=== PATIENT | male | born 1975 | race African-American/Black ===

== ENCOUNTER 2018-11-13 10:48 | Inpatient (IN) | payer MEDICAID ==
[~2018-11-13] VITALS: Ht 175.3 cm; Wt 68.9 kg
[2018-11-13 12:21] LABS: BASOPHILS % 1.1 % (0.0-2.0); EOSINOPHILS % 2.5 % (0.0-5.0); HEMATOCRIT. 38.4 % (42.0-52.0); HEMOGLOBIN. 13.4 g/dL (14.0-18.0); LYMPHOCYTES % 11.4 % (20.0-50.0); MEAN CORPUSCULAR HEMOGLOBIN 35.8 pg (28.0-32.0); MEAN CORPUSCULAR VOLUME 102.8 fL (80.0-94.0); MEAN PLATELET VOLUME 9.4 fl (7.4-10.4); MONOCYTES % 7.4 % (2.0-8.0); NEUTROPHILS % 77.6 % (40.0-76.0); PLATELET 144 x1000/uL (130-400); RED BLOOD CELL COUNT 3.74 mill/uL (4.7-6.1); RED CELL DISTRIBUTION WIDTH 14.1 % (11.6-14.6)
[2018-11-13 12:26] LABS: CHLORIDE 100 mEq/L (98-107)
[2018-11-13 12:31] LABS: ETHANOL BLOOD < 10 mg/dL
[2018-11-13 14:03] LABS: CLARITY URINE CLEAR (CLEAR); KETONES URINE TRACE (NEGATIVE); LEUKOCYTE ESTERASE URINE NEGATIVE (NEGATIVE); NITRITE URINE NEGATIVE (NEGATIVE); OCCULT BLOOD URINE TRACE (NEGATIVE); PROTEIN URINE 1+ (NEGATIVE)
[2018-11-13 14:18] LABS: *BARBITURATES SCREEN URINE NEGATIVE (NEGATIVE); *BENZODIAZEPINES SCREEN URINE NEGATIVE (NEGATIVE); *COCAINE SCREEN URINE NEGATIVE (NEGATIVE); METHADONE URINE SCREEN NEGATIVE (NEGATIVE); OPIATES URINE SCREEN NEGATIVE (NEGATIVE)
[2018-11-13 14:19] LABS: *AMPHETAMINES SCREEN URINE NEGATIVE (NEGATIVE); PHENCYCLIDINE URINE SCREEN NEGATIVE (NEGATIVE)
[2018-11-13] MEDS: LORAZEPAM 2MG/ML CPJ IV NR ×2 (14:19→14:55)
[2018-11-13] MEDS ORDERED: FOLIC ACID 1 MG, THIAMINE HCL 100 MG, MVI, ADULT NO.1 10 ML in DEXTROSE 5% WATER 1,000 ML IV SCH ×4 (15:00)
[2018-11-13 16:00] VITALS: BP 171/114
[2018-11-13] MEDS ORDERED: IPRATROPIUM/ALBUTEROL 0.5-3(2.5)MG/3ML NEB INH PRN (16:00)
[2018-11-13] MEDS ORDERED: CLONIDINE 0.1MG TABLET PO PRN (16:00)
[2018-11-13] MEDS ORDERED: DIPHENHYDRAMINE 50MG/ML VIAL IV PRN (16:00)
[2018-11-13] MEDS ORDERED: LORAZEPAM 2MG/ML CPJ IV PRN (16:00)
[2018-11-13] MEDS ORDERED: DOCUSATE SODIUM 100MG CAPSULE PO PRN (16:00)
[2018-11-13] MEDS ORDERED: ACETAMINOPHEN 325MG TABLET PO PRN (16:00)
[2018-11-13] MEDS ORDERED: LORAZEPAM 2MG/ML CPJ IV NR (16:00)
[2018-11-13] MEDS ORDERED: HYDROCODONE/ACETAMINOPHEN 5/325MG TABLET PO PRN (16:00)
[2018-11-13] MEDS ORDERED: GUAIFENESIN 200MG/10ML SUGAR FREE UDC PO PRN (16:00)
[2018-11-13] MEDS ORDERED: MAGNESIUM/ALUMINUM HYDROXIDE/SIMETHICONE 30ML UDC PO PRN (16:00)
[2018-11-13] MEDS ORDERED: ONDANSETRON HCL 4MG/2ML INJ IV PRN (16:00)
[2018-11-13] MEDS ORDERED: HYDRALAZINE 20MG/ML VIAL IV PRN (16:00)
[2018-11-13] MEDS ORDERED: ACETAMINOPHEN 650MG SUPP PR PRN (16:00)
[2018-11-13 16:38] VITALS: BP 171/114
[2018-11-13] MEDS ORDERED: ENOXAPARIN 40MG/0.4ML SYR SUBCUT SCH (17:00)
[2018-11-13] MEDS: SODIUM CHLORIDE 0.45% 1,000 ML IV SCH (18:16)
[2018-11-13] MEDS ORDERED: POTASSIUM CHLORIDE INJ 40 MEQ in DEXT 5% WATER 500 ML IV NR (18:30)
[2018-11-13] MEDS ORDERED: LEVOFLOXACIN 500MG PREMIX 100 ML IV SCH (18:30)
[2018-11-13 20:00] VITALS: BP 149/102
[2018-11-13 20:38] LABS: INR 1.1; PROTHROMBIN TIME 11.3 sec (9.6-11.0)
[2018-11-13] MEDS ORDERED: NA PHOS,M-B/NA PHOS,DI-BA ENEMA 118ML PR PRN (21:00)
[2018-11-13 21:30] LABS: HEPATITIS B SURFACE ANTIGEN NEGATIVE
[2018-11-13] MEDS: CHLORDIAZEPOXIDE 25MG CAPSULE PO SCH (21:52)
[2018-11-13] MEDS: LEVETIRACETAM 500 MG in SODIUM CHLORIDE 0.9% 100 ML IV SCH (21:52)
[2018-11-13 22:00] LABS: HEPATITIS A AB IGM NEGATIVE (NEGATIVE)
[2018-11-14] VITALS (8 sets, daily range): BP systolic 131–155; BP diastolic 86–106
[2018-11-14 00:17] LABS: CREATINE KINASE 999 IU/L (39-308)
[2018-11-14 00:18] LABS: CREATINE KINASE MB FRACTION 4.7 ng/mL (0.5-3.6)
[2018-11-14] MEDS: CHLORDIAZEPOXIDE 25MG CAPSULE PO SCH ×2 (05:26→13:00)
[2018-11-14] MEDS: SODIUM CHLORIDE 0.45% 1,000 ML IV SCH ×3 (05:35→16:30)
[2018-11-14 06:36] LABS: BASOPHILS % 1.4 % (0.0-2.0); EOSINOPHILS % 6.7 % (0.0-5.0); HEMATOCRIT. 36.7 % (42.0-52.0); HEMOGLOBIN. 12.8 g/dL (14.0-18.0); MEAN CORPUSCULAR HEMOGLOBIN 35.4 pg (28.0-32.0); MEAN CORPUSCULAR VOLUME 101.4 fL (80.0-94.0); MEAN PLATELET VOLUME 9.1 fl (7.4-10.4); MONOCYTES % 8.7 % (2.0-8.0); NEUTROPHILS % 69.2 % (40.0-76.0); PLATELET 141 x1000/uL (130-400); RED BLOOD CELL COUNT 3.62 mill/uL (4.7-6.1); RED CELL DISTRIBUTION WIDTH 13.7 % (11.6-14.6)
[2018-11-14 06:41] LABS: CHLORIDE 105 mEq/L (98-107)
[2018-11-14 06:50] LABS: CREATINE KINASE MB FRACTION 3.8 ng/mL (0.5-3.6); LDL CHOLESTEROL 144 mg/dL (5-100)
[2018-11-14 06:51] LABS: CREATINE KINASE 931 IU/L (39-308); HDL CHOLESTEROL 42 mg/dL (40-59); T4 FREE 0.78 ng/dL (0.76-1.46)
[2018-11-14] MEDS ORDERED: MULTIVITAMINS,THER W-MINERALS TABLET PO SCH (09:00)
[2018-11-14] MEDS ORDERED: THIAMINE HCL 100MG TABLET PO SCH (09:00)
[2018-11-14] MEDS ORDERED: FOLIC ACID 1MG TABLET PO SCH (09:00)
[2018-11-14] MEDS: LEVETIRACETAM 500 MG in SODIUM CHLORIDE 0.9% 100 ML IV SCH (09:23)
[2018-11-14 13:25] LABS: T4 FREE 0.8 ng/dL (0.76-1.46)
[2018-11-14 13:47] LABS: VITAMIN B12 SERUM 1540 pg/mL (211-911)
[2018-11-14 13:53] LABS: FOLIC ACID (FOLATE) SERUM > 20.00 ng/mL (>5.38)
[2018-11-14] MEDS ORDERED: POTASSIUM CHLORIDE INJ 40 MEQ in DEXT 5% WATER 250 ML IV NR (14:30)
[2018-11-16 07:46] LABS: CANNABINOID URINE SCREEN PRESUMTIVE POSITIVE (NEGATIVE)
[2018-11-16 08:01] LABS: COLOR URINE YELLOW (YELLOW)
[2018-12-07] MEDS ORDERED: KEPP500 MT (18:40)
== END 2018-11-14 19:55 | disposition home or self-care (01) | DRG 53 ==
LOC: ER 10:59 → 7WST 14:17 → EDBEDREQ 14:20 → EDBEDREQTM 14:20 → ENRESERV 15:28
PROVIDERS: ADMIT Internal Medicine; ATTEND Internal Medicine
DX: R56.9 Unspecified convulsions (principal); D53.9 Nutritional anemia, unspecified; E86.0 Dehydration; E78.5 Hyperlipidemia, unspecified; S01.511A Laceration without foreign body of lip, initial encounter; F17.210 Nicotine dependence, cigarettes, uncomplicated; E87.6 Hypokalemia; R80.9 Proteinuria, unspecified; N39.0 Urinary tract infection, site not specified; I10 Essential (primary) hypertension; R73.9 Hyperglycemia, unspecified; R74.0 Nonspecific elevation of levels of transaminase and lactic acid dehydrogenase [LDH]; Y90.9 Presence of alcohol in blood, level not specified; F10.10 Alcohol abuse, uncomplicated; W18.39XA Other fall on same level, initial encounter; Y93.89 Activity, other specified; Y92.89 Other specified places as the place of occurrence of the external cause; Y99.8 Other external cause status
CPT/HCPCS: 36415; 70551; 71045; 76700; 80061; 80305; 80320; 82140; 82550; 82553; 82607; 82746; 82962; 83036; 84439; 84443; 84481; 84484; 86705; 86709; 86803; 87340; 93306; 93970; 96365; 96375; 97161; 99285; J0360; J1650; J1953; J1956; J2060; J3411; J3480; J3490; J7050; J7060; J7070; G0480

== ENCOUNTER 2019-07-08 20:43 | Emergency (ER) | payer MEDICAID ==
[~2019-07-08] VITALS: Ht 175.3 cm; Wt 71.0 kg
[~2019-07-08 20:43] MED LIST: KEPP500 MT
[2019-07-09] MEDS ORDERED: KETOROLAC 60MG/2ML VIAL IM ONE (08:30)
[2019-07-09] MEDS ORDERED: ONDANSETRON 4MG ODT PO ONE (08:30)
[2019-07-09 09:02] LABS: BASOPHILS % 0.4 % (0.0-2.0); EOSINOPHILS % 7.6 % (0.0-5.0); HEMATOCRIT. 41.9 % (42.0-52.0); HEMOGLOBIN. 14.7 g/dL (14.0-18.0); LYMPHOCYTES % 20.1 % (20.0-50.0); MEAN CORPUSCULAR HEMOGLOBIN 34.2 pg (28.0-32.0); MEAN PLATELET VOLUME 8.6 fl (7.4-10.4); MONOCYTES % 9.4 % (2.0-8.0); NEUTROPHILS % 62.5 % (40.0-76.0); PLATELET 224 x1000/uL (130-400); RED BLOOD CELL COUNT 4.31 mill/uL (4.7-6.1)
[2019-07-09 09:09] LABS: INR 0.9; PROTHROMBIN TIME 10.2 sec (9.6-11.0)
[2019-07-09 09:13] LABS: CHLORIDE 103 mEq/L (98-107)
[2019-07-09 09:14] LABS: CLARITY URINE CLEAR (CLEAR); COLOR URINE DK YELLOW (YELLOW); KETONES URINE NEGATIVE (NEGATIVE); LEUKOCYTE ESTERASE URINE NEGATIVE (NEGATIVE); NITRITE URINE NEGATIVE (NEGATIVE); OCCULT BLOOD URINE NEGATIVE (NEGATIVE); PH URINE 6.5 (4.5-8.0); PROTEIN URINE TRACE (NEGATIVE); SPECIFIC GRAVITY URINE 1.017 (1.005-1.030)
[2019-07-09 09:18] LABS: ETHANOL BLOOD < 10 mg/dL
[2019-07-09 09:46] LABS: *BENZODIAZEPINES SCREEN URINE NEGATIVE (NEGATIVE); *COCAINE SCREEN URINE NEGATIVE (NEGATIVE)
[2019-07-09 09:47] LABS: CANNABINOID URINE SCREEN PRESUMTIVE POSITIVE (NEGATIVE); METHADONE URINE SCREEN NEGATIVE (NEGATIVE); OPIATES URINE SCREEN NEGATIVE (NEGATIVE); PHENCYCLIDINE URINE SCREEN NEGATIVE (NEGATIVE)
[2019-07-09 09:50] LABS: *AMPHETAMINES SCREEN URINE NEGATIVE (NEGATIVE); *BARBITURATES SCREEN URINE NEGATIVE (NEGATIVE)
[2019-07-09] MEDS ORDERED: HYDROCODONE/ACETAMINOPHEN 5/325MG TABLET PO ONE (11:00)
[2019-07-09 11:03] VITALS: BP 154/85
== END 2019-07-09 11:05 | disposition home or self-care (01) ==
LOC: ER 20:43
DX: K85.90 Acute pancreatitis without necrosis or infection, unspecified (principal); R11.2 Nausea with vomiting, unspecified; I10 Essential (primary) hypertension; Z86.73 Personal history of transient ischemic attack (TIA), and cerebral infarction without residual deficits
CPT/HCPCS: 36415; 80053; 80305; 80320; 81003; 83690; 85025; 85610; 96372; 99283; J1885; Q0162; G0480

== ENCOUNTER 2019-09-23 03:04 | Emergency (ER) | payer MEDICAID ==
[~2019-09-23] VITALS: Ht 180.3 cm; Wt 77.0 kg
[2019-09-23] MEDS ORDERED: KETOROLAC 30MG/ML VIAL IV STA (03:24)
[2019-09-23] MEDS ORDERED: SODIUM CHLORIDE 0.9% 1,000 ML IV ONE (03:24)
[2019-09-23] MEDS ORDERED: ONDANSETRON HCL 4MG/2ML INJ IV ONE (03:30)
[2019-09-23 04:06] LABS: BASOPHILS % 3.1 % (0.0-2.0); EOSINOPHILS % 3.7 % (0.0-5.0); HEMATOCRIT. 44.1 % (42.0-52.0); HEMOGLOBIN. 15.4 g/dL (14.0-18.0); LYMPHOCYTES % 26.5 % (20.0-50.0); MEAN CORPUSCULAR HEMOGLOBIN 37.8 pg (28.0-32.0); MEAN CORPUSCULAR VOLUME 108.6 fL (80.0-94.0); MEAN PLATELET VOLUME 8.2 fl (7.4-10.4); MONOCYTES % 6.2 % (2.0-8.0); NEUTROPHILS % 60.5 % (40.0-76.0); PLATELET 219 x1000/uL (130-400); RED BLOOD CELL COUNT 4.06 mill/uL (4.7-6.1); RED CELL DISTRIBUTION WIDTH 14.4 % (11.6-14.6)
[2019-09-23 04:15] LABS: CHLORIDE 107 mEq/L (98-107)
[2019-09-23 04:17] LABS: INR 1.1; PROTHROMBIN TIME 11.5 sec (9.6-11.0)
[2019-09-23] MEDS ORDERED: MORPHINE SULFATE 4 MG/ML CPJ (NOT FOR IM USE) IV ONE (05:15)
[2019-09-23] MEDS ORDERED: HYDROCODONE/ACETAMINOPHEN 5/325MG TABLET PO ONE (06:00)
[2019-09-23 06:14] VITALS: BP 141/95
== END 2019-09-23 06:37 | disposition home or self-care (01) ==
LOC: ER 03:04
DX: K85.90 Acute pancreatitis without necrosis or infection, unspecified (principal); E86.0 Dehydration; I10 Essential (primary) hypertension; F17.210 Nicotine dependence, cigarettes, uncomplicated; Z86.73 Personal history of transient ischemic attack (TIA), and cerebral infarction without residual deficits
CPT/HCPCS: 36415; 80053; 80320; 83690; 85025; 85610; 96374; 96375; 99284; J1885; J2270; J2405; J7030; G0480

== ENCOUNTER 2019-10-12 14:01 | Emergency (ER) | payer MEDICAID ==
[~2019-10-12] VITALS: Ht 172.7 cm; Wt 69.0 kg
[2019-10-12] MEDS ORDERED: MORPHINE SULFATE 4 MG/ML CPJ (NOT FOR IM USE) IV STA (14:22)
[2019-10-12] MEDS ORDERED: ONDANSETRON HCL 4MG/2ML INJ IV STA (14:22)
[2019-10-12] MEDS ORDERED: SODIUM CHLORIDE 0.9% 1,000 ML IV ONE (14:22)
[2019-10-12 14:52] LABS: BASOPHILS % 0.8 % (0.0-2.0); EOSINOPHILS % 0.3 % (0.0-5.0); HEMATOCRIT. 39.7 % (42.0-52.0); HEMOGLOBIN. 13.9 g/dL (14.0-18.0); LYMPHOCYTES % 9.9 % (20.0-50.0); MEAN CORPUSCULAR HEMOGLOBIN 37.4 pg (28.0-32.0); MEAN CORPUSCULAR VOLUME 106.7 fL (80.0-94.0); MEAN PLATELET VOLUME 7.9 fl (7.4-10.4); MONOCYTES % 4.1 % (2.0-8.0); NEUTROPHILS % 84.9 % (40.0-76.0); PLATELET 170 x1000/uL (130-400); RED BLOOD CELL COUNT 3.72 mill/uL (4.7-6.1); RED CELL DISTRIBUTION WIDTH 14.2 % (11.6-14.6)
[2019-10-12 14:56] LABS: CHLORIDE 102 mEq/L (98-107)
[2019-10-12 15:01] LABS: INR 1.1; PROTHROMBIN TIME 11.4 sec (9.6-11.0)
[2019-10-12] MEDS ORDERED: MORPHINE SULFATE 4 MG/ML CPJ (NOT FOR IM USE) IV ONE (15:45)
[2019-10-12 17:02] LABS: CLARITY URINE CLEAR (CLEAR); COLOR URINE YELLOW (YELLOW); KETONES URINE TRACE (NEGATIVE); LEUKOCYTE ESTERASE URINE NEGATIVE (NEGATIVE); NITRITE URINE NEGATIVE (NEGATIVE); OCCULT BLOOD URINE NEGATIVE (NEGATIVE); PH URINE 5.5 (4.5-8.0); PROTEIN URINE 1+ (NEGATIVE); SPECIFIC GRAVITY URINE 1.023 (1.005-1.030)
[2019-10-12 20:40] VITALS: BP 111/74
== END 2019-10-12 21:58 ==
LOC: ER 14:14 → EDBEDREQTM 15:43 → EDBEDREQ 15:43 → ER 21:58 → CANBEDREQ 10-13 01:25
DX: R65.21 Severe sepsis with septic shock (principal); J18.9 Pneumonia, unspecified organism; K86.0 Alcohol-induced chronic pancreatitis; G40.909 Epilepsy, unspecified, not intractable, without status epilepticus; I10 Essential (primary) hypertension; R74.0 Nonspecific elevation of levels of transaminase and lactic acid dehydrogenase [LDH]; D64.9 Anemia, unspecified; Z86.73 Personal history of transient ischemic attack (TIA), and cerebral infarction without residual deficits; Z93.0 Tracheostomy status; Y90.9 Presence of alcohol in blood, level not specified
CPT/HCPCS: 36415; 80053; 81003; 83605; 83690; 84484; 85025; 85610; 96361; 96374; 96375; 96376; 99285; J2270; J2405; J7030

== ENCOUNTER 2019-11-12 00:22 | Emergency (ER) | payer MEDICAID ==
[~2019-11-12] VITALS: Ht 182.9 cm; Wt 77.0 kg
[2019-11-12] MEDS ORDERED: ONDANSETRON HCL 4MG/2ML INJ IV STA (00:41)
[2019-11-12] MEDS ORDERED: SODIUM CHLORIDE 0.9% 1,000 ML IV ONE (00:41)
[2019-11-12] MEDS ORDERED: LEVETIRACETAM 1000MG/100ML 100 ML IV ONE (00:45)
[2019-11-12 01:04] LABS: CHLORIDE 107 mEq/L (98-107)
[2019-11-12 01:08] LABS: ETHANOL BLOOD < 10 mg/dL
[2019-11-12 01:11] LABS: BASOPHILS % 1.2 % (0.0-2.0); EOSINOPHILS % 0.9 % (0.0-5.0); HEMATOCRIT. 33.5 % (42.0-52.0); HEMOGLOBIN. 11.6 g/dL (14.0-18.0); LYMPHOCYTES % 11.2 % (20.0-50.0); MEAN CORPUSCULAR HEMOGLOBIN 37.5 pg (28.0-32.0); MEAN CORPUSCULAR VOLUME 108.2 fL (80.0-94.0); MEAN PLATELET VOLUME 8.4 fl (7.4-10.4); MONOCYTES % 11.9 % (2.0-8.0); NEUTROPHILS % 74.8 % (40.0-76.0); PLATELET 230 x1000/uL (130-400); RED CELL DISTRIBUTION WIDTH 14.7 % (11.6-14.6)
[2019-11-12 03:35] LABS: CLARITY URINE CLEAR (CLEAR); COLOR URINE YELLOW (YELLOW); KETONES URINE NEGATIVE (NEGATIVE); LEUKOCYTE ESTERASE URINE NEGATIVE (NEGATIVE); NITRITE URINE NEGATIVE (NEGATIVE); OCCULT BLOOD URINE NEGATIVE (NEGATIVE); PROTEIN URINE TRACE (NEGATIVE); SPECIFIC GRAVITY URINE 1.008 (1.005-1.030); UROBILINOGEN URINE 0.2 E.U./dL (0.2-1.0)
[2019-11-12 03:52] LABS: *AMPHETAMINES SCREEN URINE NEGATIVE (NEGATIVE); *BARBITURATES SCREEN URINE NEGATIVE (NEGATIVE); *BENZODIAZEPINES SCREEN URINE PRESUMTIVE POSITIVE (NEGATIVE); *COCAINE SCREEN URINE NEGATIVE (NEGATIVE)
[2019-11-12 03:53] LABS: CANNABINOID URINE SCREEN NEGATIVE (NEGATIVE); METHADONE URINE SCREEN NEGATIVE (NEGATIVE); OPIATES URINE SCREEN NEGATIVE (NEGATIVE); PHENCYCLIDINE URINE SCREEN NEGATIVE (NEGATIVE)
[2019-11-12 06:00] VITALS: BP 146/78
== END 2019-11-12 07:17 | disposition home or self-care (01) ==
LOC: ER 00:22
DX: R56.9 Unspecified convulsions (principal); Z91.14 Patient's other noncompliance with medication regimen; I10 Essential (primary) hypertension
CPT/HCPCS: 36415; 70450; 80053; 80305; 80320; 81003; 82962; 84484; 85025; 93005; 96365; 96366; 96375; 99285; J1953; J2405; J7030; G0480

== ENCOUNTER 2020-01-03 21:59 | Emergency (ER) | payer MEDICAID ==
[~2020-01-03] VITALS: Ht 177.8 cm; Wt 75.0 kg
[2020-01-03] MEDS ORDERED: KETOROLAC 30MG/ML VIAL IM ONE (22:45)
[2020-01-04 00:53] VITALS: BP 124/68
== END 2020-01-04 01:00 | disposition home or self-care (01) ==
LOC: ER 21:59
DX: R51 Headache (principal); I10 Essential (primary) hypertension
CPT/HCPCS: 93005; 96372; 99283; J1885

== ENCOUNTER 2020-02-04 21:05 | Inpatient (IN) | payer MEDICAID ==
[~2020-02-04] VITALS: Ht 175.3 cm; Wt 51.3 kg
[2020-02-04] MEDS ORDERED: ONDANSETRON HCL 4MG/2ML INJ IV ONE (23:00)
[2020-02-04] MEDS ORDERED: SODIUM CHLORIDE 0.9% 1,000 ML IV ONE (23:00)
[2020-02-04] MEDS ORDERED: KETOROLAC 30MG/ML VIAL IV ONE (23:00)
[2020-02-05 00:10] LABS: BASOPHILS % 3.7 % (0.0-2.0); EOSINOPHILS % 4.2 % (0.0-5.0); HEMATOCRIT. 36.6 % (42.0-52.0); HEMOGLOBIN. 12.8 g/dL (14.0-18.0); LYMPHOCYTES % 25.5 % (20.0-50.0); MEAN CORPUSCULAR HEMOGLOBIN 38.9 pg (28.0-32.0); MEAN CORPUSCULAR VOLUME 110.9 fL (80.0-94.0); MEAN PLATELET VOLUME 8.2 fl (7.4-10.4); MONOCYTES % 6.5 % (2.0-8.0); NEUTROPHILS % 60.1 % (40.0-76.0); PLATELET 217 x1000/uL (130-400); RED CELL DISTRIBUTION WIDTH 18.3 % (11.6-14.6)
[2020-02-05 00:15] LABS: CLARITY URINE CLEAR (CLEAR); COLOR URINE DARK YELLOW (YELLOW); KETONES URINE 1+ (NEGATIVE); LEUKOCYTE ESTERASE URINE NEGATIVE (NEGATIVE); NITRITE URINE NEGATIVE (NEGATIVE); OCCULT BLOOD URINE NEGATIVE (NEGATIVE); PH URINE 5.5 (4.5-8.0); PROTEIN URINE TRACE (NEGATIVE); SPECIFIC GRAVITY URINE 1.025 (1.005-1.030)
[2020-02-05 00:20] LABS: CHLORIDE 102 mEq/L (98-107)
[2020-02-05] MEDS ORDERED: SODIUM CHLORIDE 0.9% 1,000 ML IV ONE (01:15)
[2020-02-05] MEDS ORDERED: MORPHINE SULFATE 4 MG/ML CPJ (NOT FOR IM USE) IV ONE (01:15)
[2020-02-05 04:16] LABS: INR 1.5
[2020-02-05 04:17] LABS: PROTHROMBIN TIME 15.8 sec (9.6-11.0)
[2020-02-05 04:43] LABS: PLATELET ESTIMATE NORMAL
[2020-02-05] MEDS ORDERED: DIAZEPAM 5 MG/ML 2ML CPJ IV ONE (05:15)
[2020-02-05] MEDS ORDERED: CHLORDIAZEPOXIDE 25MG CAPSULE PO ONE (05:15)
[2020-02-05] MEDS ORDERED: DIPHENHYDRAMINE 50MG/ML VIAL IV PRN (09:00)
[2020-02-05] MEDS ORDERED: ONDANSETRON HCL 4MG/2ML INJ IV PRN (09:00)
[2020-02-05] MEDS ORDERED: MORPHINE SULFATE 2 MG/ML CPJ (NOT FOR IM USE) IV PRN (09:00)
[2020-02-05] MEDS ORDERED: LORAZEPAM 2MG/ML CPJ IV PRN (09:00)
[2020-02-05] MEDS ORDERED: ACETAMINOPHEN 325MG TABLET PO PRN (09:00)
[2020-02-05] MEDS ORDERED: IPRATROPIUM/ALBUTEROL 0.5-3(2.5)MG/3ML NEB NEB PRN (09:00)
[2020-02-05 09:13] VITALS: BP 110/60
[2020-02-05] MEDS: DEXT 5%/0.45% NACL 1000ML 1,000 ML IV SCH ×2 (09:30→22:07)
[2020-02-05 09:45] VITALS: BP 132/94
[2020-02-05] MEDS: PIPERACILLIN/TAZOBACTAM 3.375 G in DEXT 5% WATER 100 ML IV SCH ×4 (10:12→23:42)
[2020-02-05] MEDS: FAMOTIDINE 20MG/2ML VIAL IV SCH (10:13)
[2020-02-05 11:09] LABS: *AMPHETAMINES SCREEN URINE NEGATIVE (NEGATIVE); *BARBITURATES SCREEN URINE NEGATIVE (NEGATIVE); *BENZODIAZEPINES SCREEN URINE NEGATIVE (NEGATIVE); *COCAINE SCREEN URINE NEGATIVE (NEGATIVE); METHADONE URINE SCREEN NEGATIVE (NEGATIVE)
[2020-02-05 11:10] LABS: CANNABINOID URINE SCREEN PRESUMTIVE POSITIVE (NEGATIVE); OPIATES URINE SCREEN NEGATIVE (NEGATIVE); PHENCYCLIDINE URINE SCREEN NEGATIVE (NEGATIVE)
[2020-02-05 11:19] LABS: BASOPHILS % 1.3 % (0.0-2.0); EOSINOPHILS % 2.1 % (0.0-5.0); HEMATOCRIT. 42.9 % (42.0-52.0); HEMOGLOBIN. 14.5 g/dL (14.0-18.0); LYMPHOCYTES % 12.1 % (20.0-50.0); MEAN CORPUSCULAR HEMOGLOBIN 38.2 pg (28.0-32.0); MEAN CORPUSCULAR VOLUME 112.4 fL (80.0-94.0); MEAN PLATELET VOLUME 8.6 fl (7.4-10.4); MONOCYTES % 3.2 % (2.0-8.0); NEUTROPHILS % 81.3 % (40.0-76.0); PLATELET 200 x1000/uL (130-400); RED BLOOD CELL COUNT 3.81 mill/uL (4.7-6.1); RED CELL DISTRIBUTION WIDTH 18.2 % (11.6-14.6)
[2020-02-05 11:40] LABS: INR 1.3; PROTHROMBIN TIME 13.5 sec (9.6-11.0)
[2020-02-05 11:57] LABS: CHLORIDE 102 mEq/L (98-107)
[2020-02-05 11:59] VITALS: BP 165/100
[2020-02-05] MEDS: LEVETIRACETAM 500MG PREMIX 100 ML IV SCH ×2 (13:12→22:07)
[2020-02-05 13:47] LABS: BG BASE EXCESS -1.6 mmol/L (-2.0-2.0); BG CARBOXYHEMOGLOBIN 1.3 % (0.5-1.5); BG DEOXYHEMOGLOBIN 2.9 % (0.0-5.0); BG FRACTION INSPIRED OXYGEN 21; BG HCO3 ACT 22.1 mmol/L (22.0-26.0); BG METHEMOGLOBIN 0.2 % (0.0-1.5); BG OXYGEN SATURATION 97.1 % (92.0-98.5); BG OXYHEMOGLOBIN 95.6 % (94.0-97.0); BG PCO2 34.1 mmHg (35.0-45.0); BG PH 7.429 (7.350-7.450); BG PO2 90.2 mmHg (75.0-100.0); BG SAMPLE SITE RIGHT BRACHIAL; BG TOTAL HEMOGLOBIN 13.5 g/dL (12.0-18.0); BG VENT MODE ROOM AIR
[2020-02-05] MEDS ORDERED: CLONIDINE 0.1MG TABLET PO PRN (14:30)
[2020-02-05 15:14] VITALS: BP 166/83
[2020-02-05] MEDS: MVI, ADULT NO.1 10 ML, THIAMINE HCL 100 MG, FOLIC ACID 1 MG in DEXT 5%/0.45% NACL 1000M... IV SCH ×4 (15:22)
[2020-02-05 17:08] LABS: CREATINE KINASE 131 IU/L (39-308); CREATINE KINASE MB FRACTION < 1.0 ng/mL (0.5-3.6)
[2020-02-05 18:00] VITALS: BP 159/70
[2020-02-05 20:00] VITALS: BP 121/75
[2020-02-05 23:43] LABS: CREATINE KINASE 118 IU/L (39-308); CREATINE KINASE MB FRACTION < 1.0 ng/mL (0.5-3.6)
[2020-02-06] VITALS: BP 127/80
[2020-02-06 04:00] VITALS: BP 122/86
[2020-02-06] MEDS: DEXT 5%/0.45% NACL 1000ML 1,000 ML IV SCH (05:30)
[2020-02-06] MEDS: PIPERACILLIN/TAZOBACTAM 3.375 G in DEXT 5% WATER 100 ML IV SCH ×3 (05:36→17:23)
[2020-02-06 06:13] LABS: BASOPHILS % 1.2 % (0.0-2.0); EOSINOPHILS % 6.1 % (0.0-5.0); HEMATOCRIT. 36.6 % (42.0-52.0); HEMOGLOBIN. 12.5 g/dL (14.0-18.0); MEAN CORPUSCULAR VOLUME 111.5 fL (80.0-94.0); MONOCYTES % 7.6 % (2.0-8.0); NEUTROPHILS % 74.1 % (40.0-76.0); PLATELET 130 x1000/uL (130-400); RED BLOOD CELL COUNT 3.29 mill/uL (4.7-6.1); RED CELL DISTRIBUTION WIDTH 17.1 % (11.6-14.6)
[2020-02-06 08:00] VITALS: BP 126/93
[2020-02-06 08:41] LABS: CHLORIDE 104 mEq/L (98-107)
[2020-02-06] MEDS: MVI, ADULT NO.1 10 ML, THIAMINE HCL 100 MG, FOLIC ACID 1 MG in DEXT 5%/0.45% NACL 1000M... IV SCH ×4 (08:53)
[2020-02-06] MEDS: LEVETIRACETAM 500MG PREMIX 100 ML IV SCH ×2 (08:53→20:44)
[2020-02-06] MEDS: FAMOTIDINE 20MG/2ML VIAL IV SCH (08:53)
[2020-02-06] MEDS ORDERED: THIAMINE HCL 100 MG in SODIUM CHLORIDE 0.9% 49 ML IV SCH (09:00)
[2020-02-06] MEDS ORDERED: POTASSIUM CHLORIDE INJ 40 MEQ in DEXT 5% WATER 250 ML IV ONE (11:00)
[2020-02-06 12:00] VITALS: BP 124/76
[2020-02-06 16:00] VITALS: BP 122/69
[2020-02-06] MEDS ORDERED: KCL 20MEQ/100ML PREMIX 100 ML IV NR (17:00)
[2020-02-06 20:00] VITALS: BP 116/80
[2020-02-07] VITALS: BP 111/75
[2020-02-07] MEDS: PIPERACILLIN/TAZOBACTAM 3.375 G in DEXT 5% WATER 100 ML IV SCH ×3 (00:09→12:00)
[2020-02-07 04:00] VITALS: BP 108/71
[2020-02-07 07:33] LABS: BASOPHILS % 1.7 % (0.0-2.0); EOSINOPHILS % 11.6 % (0.0-5.0); HEMATOCRIT. 32.2 % (42.0-52.0); LYMPHOCYTES % 13.4 % (20.0-50.0); MEAN CORPUSCULAR HEMOGLOBIN 38.2 pg (28.0-32.0); MEAN CORPUSCULAR VOLUME 111.7 fL (80.0-94.0); MEAN PLATELET VOLUME 9.1 fl (7.4-10.4); MONOCYTES % 7.9 % (2.0-8.0); NEUTROPHILS % 65.4 % (40.0-76.0); PLATELET 104 x1000/uL (130-400); RED BLOOD CELL COUNT 2.89 mill/uL (4.7-6.1); RED CELL DISTRIBUTION WIDTH 17.5 % (11.6-14.6)
[2020-02-07 08:00] VITALS: BP 111/76
[2020-02-07 08:03] LABS: CHLORIDE 107 mEq/L (98-107)
[2020-02-07] MEDS: FAMOTIDINE 20MG/2ML VIAL IV SCH (09:57)
[2020-02-07] MEDS: LEVETIRACETAM 500MG PREMIX 100 ML IV SCH (09:57)
[2020-02-07 11:50] VITALS: BP 115/74
[2020-02-07] MEDS ORDERED: NICOTINE 14MG PATCH TD NR (14:45)
== END 2020-02-07 15:20 | disposition left against medical advice (07) | DRG 52 ==
LOC: ER 21:05 → 8WST 02-05 02:02 → EDBEDREQSVC 02-05 05:44 → EDBEDREQTM 02-05 05:44 → ENRESERV 02-05 08:07 → SUPCPDRO 02-05 08:48 → 8WST 02-07 13:02
PROVIDERS: ADMIT Internal Medicine; ATTEND Internal Medicine
DX: G92 Toxic encephalopathy (principal); K85.90 Acute pancreatitis without necrosis or infection, unspecified; F10.229 Alcohol dependence with intoxication, unspecified; F32.9 Major depressive disorder, single episode, unspecified; F10.239 Alcohol dependence with withdrawal, unspecified; E86.0 Dehydration; D64.9 Anemia, unspecified; D68.9 Coagulation defect, unspecified; E87.1 Hypo-osmolality and hyponatremia; E87.6 Hypokalemia; I10 Essential (primary) hypertension; K76.0 Fatty (change of) liver, not elsewhere classified; G40.89 Other seizures; K86.3 Pseudocyst of pancreas; K86.1 Other chronic pancreatitis; Z87.891 Personal history of nicotine dependence; Z79.899 Other long term (current) drug therapy
CPT/HCPCS: 36415; 36600; 71045; 74176; 76705; 80053; 80305; 80320; 81003; 82375; 82550; 82553; 82805; 84439; 84443; 84484; 85025; 86301; 86850; 86900; 93005; 97116; 97162; 97535; 99285; J1885; J1953; J2270; J2405; J2543; J3411; J3480; J3490; J7030; J7060; G0480

== ENCOUNTER 2020-03-23 02:21 | Emergency (ER) | payer MEDICAID ==
[~2020-03-23] VITALS: Ht 172.7 cm; Wt 73.0 kg
[2020-03-23] MEDS ORDERED: ONDANSETRON HCL 4MG/2ML INJ IV ONE (03:00)
[2020-03-23] MEDS ORDERED: LORAZEPAM 2MG/ML CPJ IV ONE (03:00)
[2020-03-23 03:18] LABS: CHLORIDE 101 mEq/L (98-107)
[2020-03-23 03:24] LABS: ETHANOL BLOOD < 10 mg/dL
[2020-03-23 03:32] LABS: CLARITY URINE CLOUDY (CLEAR); COLOR URINE YELLOW (YELLOW); KETONES URINE TRACE (NEGATIVE); LEUKOCYTE ESTERASE URINE NEGATIVE (NEGATIVE); NITRITE URINE NEGATIVE (NEGATIVE); OCCULT BLOOD URINE 2+ (NEGATIVE); PROTEIN URINE 2+ (NEGATIVE); SPECIFIC GRAVITY URINE 1.016 (1.005-1.030)
[2020-03-23 03:44] LABS: *AMPHETAMINES SCREEN URINE NEGATIVE (NEGATIVE); *BARBITURATES SCREEN URINE NEGATIVE (NEGATIVE); *BENZODIAZEPINES SCREEN URINE NEGATIVE (NEGATIVE); *COCAINE SCREEN URINE NEGATIVE (NEGATIVE); METHADONE URINE SCREEN NEGATIVE (NEGATIVE)
[2020-03-23 03:46] LABS: CANNABINOID URINE SCREEN PRESUMTIVE POSITIVE (NEGATIVE); OPIATES URINE SCREEN NEGATIVE (NEGATIVE); PHENCYCLIDINE URINE SCREEN NEGATIVE (NEGATIVE)
[2020-03-23 04:19] LABS: EOSINOPHILS % 0.6 % (0.0-5.0); HEMATOCRIT. 37.4 % (42.0-52.0); HEMOGLOBIN. 12.3 g/dL (14.0-18.0); LYMPHOCYTES % 12.4 % (20.0-50.0); MEAN CORPUSCULAR HEMOGLOBIN 37.5 pg (28.0-32.0); MEAN PLATELET VOLUME 8.7 fl (7.4-10.4); MONOCYTES % 6.3 % (2.0-8.0); NEUTROPHILS % 79.7 % (40.0-76.0); PLATELET 169 x1000/uL (130-400); RED BLOOD CELL COUNT 3.28 mill/uL (4.7-6.1)
[2020-03-23 04:25] LABS: PLATELET ESTIMATE NORMAL
[2020-03-23 07:37] VITALS: BP 142/93
== END 2020-03-23 07:43 | disposition home or self-care (01) ==
LOC: ER 02:21
DX: G40.909 Epilepsy, unspecified, not intractable, without status epilepticus (principal); F12.90 Cannabis use, unspecified, uncomplicated; I10 Essential (primary) hypertension; Z91.14 Patient's other noncompliance with medication regimen
CPT/HCPCS: 36415; 80053; 80305; 80320; 81003; 82962; 85025; 93005; 96374; 96375; 99284; J2060; J2405; G0480

== ENCOUNTER 2020-04-14 18:34 | Emergency (ER) | payer MEDICAID ==
[~2020-04-14] VITALS: Ht 180.3 cm; Wt 86.0 kg
[2020-04-14] MEDS ORDERED: SODIUM CHLORIDE 0.9% 1,000 ML IV ONE (19:45)
[2020-04-14] MEDS ORDERED: LORAZEPAM 2MG/ML CPJ IV ONE (19:45)
[2020-04-14] MEDS ORDERED: LEVETIRACETAM 500MG PREMIX 100 ML IV ONE (19:45)
[2020-04-14] MEDS ORDERED: LIDOCAINE 1%/EPI 1:100,000 10 ML VIAL IJ ONE (20:00)
[2020-04-14] MEDS ORDERED: LIDOCAINE HCL/EPINEPHRINE 1%-EPI 1:100,000 20 ML VIAL INFIL NR (20:00)
[2020-04-14] MEDS ORDERED: TETANUS, DIPHTHERIA, PERTUSSIS VAC/PF 0.5ML (>7YR OLD) IM ONE (20:00)
[2020-04-14 20:48] LABS: BASOPHILS % 1.4 % (0.0-2.0); EOSINOPHILS % 0.1 % (0.0-5.0); HEMATOCRIT. 46.5 % (42.0-52.0); HEMOGLOBIN. 15.4 g/dL (14.0-18.0); MEAN CORPUSCULAR HEMOGLOBIN 37.4 pg (28.0-32.0); MEAN CORPUSCULAR VOLUME 113.1 fL (80.0-94.0); MEAN PLATELET VOLUME 8.6 fl (7.4-10.4); MONOCYTES % 6.9 % (2.0-8.0); NEUTROPHILS % 82.6 % (40.0-76.0); PLATELET 247 x1000/uL (130-400); RED BLOOD CELL COUNT 4.12 mill/uL (4.7-6.1)
[2020-04-14 20:52] LABS: CHLORIDE 97 mEq/L (98-107)
[2020-04-14 20:57] LABS: ETHANOL BLOOD < 10 mg/dL
[2020-04-14 21:07] LABS: CARBAMAZEPINE < 0.5 ug/mL (4-12); PHENOBARBITAL < 2.1 ug/mL (15.0-40.0); VALPROIC ACID < 3.0 ug/mL (50-100)
[2020-04-14 21:17] LABS: PLATELET ESTIMATE NORMAL
[2020-04-14 23:46] LABS: *AMPHETAMINES SCREEN URINE NEGATIVE (NEGATIVE); *BARBITURATES SCREEN URINE NEGATIVE (NEGATIVE)
[2020-04-14 23:47] LABS: *BENZODIAZEPINES SCREEN URINE NEGATIVE (NEGATIVE); *COCAINE SCREEN URINE NEGATIVE (NEGATIVE); OPIATES URINE SCREEN NEGATIVE (NEGATIVE); PHENCYCLIDINE URINE SCREEN NEGATIVE (NEGATIVE)
[2020-04-14 23:48] LABS: CANNABINOID URINE SCREEN PRESUMTIVE POSITIVE (NEGATIVE)
[2020-04-15 00:14] LABS: METHADONE URINE SCREEN NEGATIVE (NEGATIVE)
[2020-04-15 01:22] VITALS: BP 145/95
== END 2020-04-15 01:35 | disposition home or self-care (01) ==
LOC: ER 18:34
DX: G40.309 Generalized idiopathic epilepsy and epileptic syndromes, not intractable, without status epilepticus (principal); S09.8XXA Other specified injuries of head, initial encounter; S01.81XA Laceration without foreign body of other part of head, initial encounter; I10 Essential (primary) hypertension; W06.XXXA Fall from bed, initial encounter; X58.XXXA Exposure to other specified factors, initial encounter; Y93.89 Activity, other specified; Y92.9 Unspecified place or not applicable
CPT/HCPCS: 12011; 36415; 70450; 80053; 80156; 80165; 80184; 80185; 80305; 80320; 85025; 90471; 90715; 93005; 96365; 96375; 99285; J1953; J2060; J3490; J7030; Z7610; G0480

== ENCOUNTER 2020-04-27 12:16 | Emergency (ER) | payer MEDICAID ==
[~2020-04-27] VITALS: Ht 177.8 cm; Wt 60.0 kg
[2020-04-27 13:12] VITALS: BP 174/109
[2020-04-27] MEDS ORDERED: LEVETIRACETAM 1000MG PREMIX 100 ML IV ONE (13:15)
[2020-04-27 13:27] LABS: BASOPHILS % 2.6 % (0.0-2.0); HEMATOCRIT. 39.9 % (42.0-52.0); HEMOGLOBIN. 13.5 g/dL (14.0-18.0); LYMPHOCYTES % 13.6 % (20.0-50.0); MEAN CORPUSCULAR HEMOGLOBIN 37.1 pg (28.0-32.0); MEAN CORPUSCULAR VOLUME 109.5 fL (80.0-94.0); MEAN PLATELET VOLUME 8.6 fl (7.4-10.4); MONOCYTES % 7.7 % (2.0-8.0); NEUTROPHILS % 74.1 % (40.0-76.0); PLATELET 193 x1000/uL (130-400); RED BLOOD CELL COUNT 3.64 mill/uL (4.7-6.1); RED CELL DISTRIBUTION WIDTH 15.9 % (11.6-14.6)
[2020-04-27 13:38] LABS: CHLORIDE 97 mEq/L (98-107)
[2020-04-27 13:42] LABS: ETHANOL BLOOD 13 mg/dL
[2020-04-27 16:44] LABS: CLARITY URINE CLEAR (CLEAR); COLOR URINE DARK YELLOW (YELLOW); KETONES URINE TRACE (NEGATIVE); LEUKOCYTE ESTERASE URINE NEGATIVE (NEGATIVE); NITRITE URINE NEGATIVE (NEGATIVE); OCCULT BLOOD URINE NEGATIVE (NEGATIVE); PROTEIN URINE 1+ (NEGATIVE); SPECIFIC GRAVITY URINE 1.024 (1.005-1.030)
[2020-04-27 16:55] LABS: *AMPHETAMINES SCREEN URINE NEGATIVE (NEGATIVE); *BARBITURATES SCREEN URINE NEGATIVE (NEGATIVE); *BENZODIAZEPINES SCREEN URINE NEGATIVE (NEGATIVE); *COCAINE SCREEN URINE NEGATIVE (NEGATIVE); METHADONE URINE SCREEN NEGATIVE (NEGATIVE); OPIATES URINE SCREEN NEGATIVE (NEGATIVE)
[2020-04-27 16:56] LABS: CANNABINOID URINE SCREEN PRESUMTIVE POSITIVE (NEGATIVE); PHENCYCLIDINE URINE SCREEN NEGATIVE (NEGATIVE)
== END 2020-04-27 14:29 | disposition home or self-care (01) ==
LOC: ER 12:21
DX: R56.9 Unspecified convulsions (principal); I10 Essential (primary) hypertension
CPT/HCPCS: 36415; 80053; 80305; 80320; 81003; 85025; 93005; 96374; 99284; J1953; G0480

== ENCOUNTER 2020-09-16 04:22 | Emergency (ER) | payer MEDICAID ==
[~2020-09-16] VITALS: Ht 175.3 cm; Wt 85.0 kg
[~2020-09-16 04:22] MED LIST changes: +AMOX-424 MT; +CYCL10TA7 PO; +EZET10TA13 MT; +METO-539 PO; +ONDA4TAB11 PO; +PROT40 MT; +[UNRECOGNIZED DRUG - CODE] PO
[2020-09-16] MEDS ORDERED: KETOROLAC 30MG/ML VIAL IV STA (05:22)
[2020-09-16] MEDS ORDERED: ONDANSETRON HCL 4MG/2ML INJ IV STA (05:22)
[2020-09-16] MEDS ORDERED: SODIUM CHLORIDE 0.9% 1,000 ML IV ONE (05:30)
[2020-09-16 05:35] LABS: BASOPHILS % 0.3 % (0.0-2.0); EOSINOPHILS % 7.4 % (0.0-5.0); HEMATOCRIT. 42.5 % (42.0-52.0); HEMOGLOBIN. 14.4 g/dL (14.0-18.0); LYMPHOCYTES % 24.1 % (20.0-50.0); MEAN CORPUSCULAR HEMOGLOBIN 34.9 pg (28.0-32.0); MEAN CORPUSCULAR VOLUME 103.4 fL (80.0-94.0); MEAN PLATELET VOLUME 8.7 fl (7.4-10.4); MONOCYTES % 10.7 % (2.0-8.0); NEUTROPHILS % 57.5 % (40.0-76.0); PLATELET 279 x1000/uL (130-400); RED BLOOD CELL COUNT 4.11 mill/uL (4.7-6.1); RED CELL DISTRIBUTION WIDTH 15.8 % (11.6-14.6)
[2020-09-16 05:37] VITALS: BP 176/90
[2020-09-16 05:44] LABS: CHLORIDE 103 mEq/L (98-107)
[2020-09-16 05:48] LABS: ETHANOL BLOOD 184 mg/dL
== END 2020-09-16 06:46 | disposition home or self-care (01) ==
LOC: ER 04:22
DX: K29.20 Alcoholic gastritis without bleeding (principal); F10.129 Alcohol abuse with intoxication, unspecified; Y90.6 Blood alcohol level of 120-199 mg/100 ml; I10 Essential (primary) hypertension; R56.9 Unspecified convulsions
CPT/HCPCS: 36415; 80053; 80320; 83690; 85025; 93005; 96361; 96374; 96375; 99284; J1885; J2405; J7030; G0480

== ENCOUNTER 2021-03-05 03:17 | Emergency (ER) | payer MEDICAID ==
[~2021-03-05] VITALS: Ht 182.9 cm; Wt 82.0 kg
[2021-03-05] MEDS ORDERED: ONDANSETRON HCL 4MG/2ML INJ IV STA (03:46)
[2021-03-05] MEDS ORDERED: SODIUM CHLORIDE 0.9% 1,000 ML IV ONE (04:00)
[2021-03-05] MEDS ORDERED: LORAZEPAM 2MG/ML CPJ IV ONE (04:00)
[2021-03-05] MEDS ORDERED: LEVETIRACETAM 500MG PREMIX 100 ML IV ONE (04:00)
[2021-03-05 04:09] LABS: BASOPHILS % 2.4 % (0.0-2.0); EOSINOPHILS % 9.2 % (0.0-5.0); HEMOGLOBIN. 13.4 g/dL (14.0-18.0); LYMPHOCYTES % 29.9 % (20.0-50.0); MEAN CORPUSCULAR HEMOGLOBIN 32.9 pg (28.0-32.0); MONOCYTES % 6.7 % (2.0-8.0); NEUTROPHILS % 51.8 % (40.0-76.0); PLATELET 183 x1000/uL (130-400); RED BLOOD CELL COUNT 4.06 mill/uL (4.7-6.1); RED CELL DISTRIBUTION WIDTH 14.4 % (11.6-14.6)
[2021-03-05 04:55] LABS: CHLORIDE 102 mEq/L (98-107)
[2021-03-05] MEDS ORDERED: KEPP500 MT (05:36)
[2021-03-05 05:47] VITALS: BP 149/89
== END 2021-03-05 06:16 | disposition home or self-care (01) ==
LOC: ER 03:26
DX: R56.9 Unspecified convulsions (principal); F12.10 Cannabis abuse, uncomplicated; Z87.19 Personal history of other diseases of the digestive system; Z79.899 Other long term (current) drug therapy
CPT/HCPCS: 36415; 80053; 82962; 85025; 96365; 96375; 99284; J1953; J2060; J2405; J7030

== ENCOUNTER 2021-04-01 01:19 | Emergency (ER) | payer MEDICAID ==
[~2021-04-01] VITALS: Ht 182.9 cm; Wt 73.0 kg
[2021-04-01] MEDS ORDERED: LEVETIRACETAM 500MG PREMIX 100 ML IV ONE (02:00)
[2021-04-01 02:16] LABS: HEMATOCRIT. 41.3 % (42.0-52.0); MEAN CORPUSCULAR HEMOGLOBIN 33.6 pg (28.0-32.0); MEAN CORPUSCULAR VOLUME 99.6 fL (80.0-94.0); MEAN PLATELET VOLUME 8.4 fl (7.4-10.4); PLATELET 277 x1000/uL (130-400); RED BLOOD CELL COUNT 4.15 mill/uL (4.7-6.1); RED CELL DISTRIBUTION WIDTH 15.8 % (11.6-14.6)
[2021-04-01 02:22] LABS: CHLORIDE 101 mEq/L (98-107)
[2021-04-01 03:41] VITALS: BP 154/101
[2021-04-01 04:38] LABS: PLATELET ESTIMATE NORMAL
[2021-04-18] MEDS ORDERED: ONDA4TAB5 PO (09:46)
[2021-04-20] MEDS ORDERED: LEVE1000 MT (13:04)
[2021-04-20] MEDS ORDERED: PROT40 MT (13:04)
[2021-04-20] MEDS ORDERED: FENO48 MT (16:10)
== END 2021-04-01 03:42 | disposition home or self-care (01) ==
LOC: ER 01:19
DX: R56.9 Unspecified convulsions (principal); I10 Essential (primary) hypertension; F12.10 Cannabis abuse, uncomplicated; Z79.899 Other long term (current) drug therapy
CPT/HCPCS: 36415; 80053; 85025; 96365; 99284; J1953

== ENCOUNTER 2021-05-11 13:53 | Emergency (ER) | payer MEDICAID ==
[~2021-05-11] VITALS: Ht 177.8 cm; Wt 85.0 kg
[~2021-05-11 13:53] MED LIST changes: -AMOX-424 MT; +FENO48 MT; -KEPP500 MT; +LEVE1000 MT; -ONDA4TAB11 PO; +ONDA4TAB5 PO
[2021-05-11] MEDS ORDERED: LEVETIRACETAM 1000MG PREMIX 100 ML IV ONE (14:15)
[2021-05-11 15:19] LABS: CHLORIDE 104 mEq/L (98-107)
[2021-05-11 15:23] LABS: ETHANOL BLOOD 39 mg/dL
[2021-05-11] MEDS ORDERED: SODIUM CHLORIDE 0.9% 1,000 ML IV ONE ×2 (16:00→18:30)
[2021-05-11] MEDS ORDERED: SODIUM BICARBONATE 8.4% 1 MEQ/ML 50ML SYR IV NR (16:00)
[2021-05-11 16:17] LABS: *AMPHETAMINES SCREEN URINE NEGATIVE (NEGATIVE); *BARBITURATES SCREEN URINE NEGATIVE (NEGATIVE)
[2021-05-11 16:18] LABS: *BENZODIAZEPINES SCREEN URINE NEGATIVE (NEGATIVE); *COCAINE SCREEN URINE NEGATIVE (NEGATIVE); CANNABINOID URINE SCREEN NEGATIVE (NEGATIVE); METHADONE URINE SCREEN NEGATIVE (NEGATIVE); OPIATES URINE SCREEN NEGATIVE (NEGATIVE); PHENCYCLIDINE URINE SCREEN NEGATIVE (NEGATIVE)
[2021-05-11 16:33] LABS: HEMATOCRIT. 37.5 % (42.0-52.0); HEMOGLOBIN. 12.9 g/dL (14.0-18.0); MEAN CORPUSCULAR HEMOGLOBIN 34.7 pg (28.0-32.0); MEAN CORPUSCULAR VOLUME 100.7 fL (80.0-94.0); MEAN PLATELET VOLUME 8.1 fl (7.4-10.4); PLATELET 241 x1000/uL (130-400); RED BLOOD CELL COUNT 3.73 mill/uL (4.7-6.1); RED CELL DISTRIBUTION WIDTH 14.4 % (11.6-14.6)
[2021-05-11 17:17] LABS: PLATELET ESTIMATE NORMAL
[2021-05-11 17:54] LABS: CHLORIDE 104 mEq/L (98-107)
[2021-05-11 20:31] VITALS: BP 156/89
== END 2021-05-11 21:07 | disposition home or self-care (01) ==
LOC: ER 14:19
DX: G40.909 Epilepsy, unspecified, not intractable, without status epilepticus (principal); I10 Essential (primary) hypertension; E87.2 Acidosis; Z79.899 Other long term (current) drug therapy
CPT/HCPCS: 36415; 80048; 80053; 80305; 80320; 82962; 83605; 85025; 93005; 96361; 96365; 99284; J1953; J3490; G0480

== ENCOUNTER 2021-07-27 23:09 | Emergency (ER) | payer MEDICAID ==
[~2021-07-27] VITALS: Ht 175.3 cm; Wt 70.0 kg
[2021-07-27] MEDS ORDERED: LEVETIRACETAM 1000MG PREMIX 100 ML IV ONE (23:45)
[2021-07-28 00:14] LABS: EOSINOPHILS % 3.8 % (0.0-5.0); HEMATOCRIT. 38.5 % (42.0-52.0); HEMOGLOBIN. 13.1 g/dL (14.0-18.0); LYMPHOCYTES % 13.8 % (20.0-50.0); MEAN CORPUSCULAR HEMOGLOBIN 34.8 pg (28.0-32.0); MEAN CORPUSCULAR VOLUME 102.7 fL (80.0-94.0); MEAN PLATELET VOLUME 8.2 fl (7.4-10.4); NEUTROPHILS % 67.4 % (40.0-76.0); PLATELET 274 x1000/uL (130-400); RED BLOOD CELL COUNT 3.75 mill/uL (4.7-6.1)
[2021-07-28 00:33] LABS: CHLORIDE 100 mEq/L (98-107)
[2021-07-28 00:37] LABS: ETHANOL BLOOD 114 mg/dL
[2021-07-28] MEDS ORDERED: LORAZEPAM 2MG/ML CPJ IV NR (00:45)
[2021-07-28 02:00] VITALS: BP 137/94
== END 2021-07-28 04:42 | disposition home or self-care (01) ==
LOC: ER 23:09
DX: R56.9 Unspecified convulsions (principal); F10.10 Alcohol abuse, uncomplicated; Y90.5 Blood alcohol level of 100-119 mg/100 ml; I10 Essential (primary) hypertension
CPT/HCPCS: 36415; 80053; 80320; 85025; 93005; 96365; 99284; J1953; J2060; G0480

== ENCOUNTER 2021-11-02 12:19 | Inpatient (IN) | payer MEDICAID ==
[~2021-11-02] VITALS: Ht 175.3 cm; Wt 80.7 kg
[~2021-11-02 12:19] MED LIST changes: +CYCL10TA21 PO; -CYCL10TA7 PO
[2021-11-02] MEDS ORDERED: SODIUM CHLORIDE 0.9% 1,000 ML IV ONE (12:45)
[2021-11-02 13:01] LABS: EOSINOPHILS % 2.8 % (0.0-5.0); HEMATOCRIT. 39.1 % (42.0-52.0); HEMOGLOBIN. 13.1 g/dL (14.0-18.0); LYMPHOCYTES % 20.4 % (20.0-50.0); MEAN CORPUSCULAR HEMOGLOBIN 33.3 pg (28.0-32.0); MEAN PLATELET VOLUME 9.2 fl (7.4-10.4); MONOCYTES % 6.7 % (2.0-8.0); NEUTROPHILS % 69.1 % (40.0-76.0); PLATELET 114 x1000/uL (130-400); RED BLOOD CELL COUNT 3.95 mill/uL (4.7-6.1); RED CELL DISTRIBUTION WIDTH 15.5 % (11.6-14.6)
[2021-11-02 13:16] LABS: CHLORIDE 98 mEq/L (98-107)
[2021-11-02 13:22] LABS: ETHANOL BLOOD 153 mg/dL
[2021-11-02] MEDS ORDERED: LORAZEPAM 2MG/ML CPJ ONE (15:51)
[2021-11-02] MEDS ORDERED: LORAZEPAM 2MG/ML CPJ IV ONE (16:00)
[2021-11-02] MEDS ORDERED: LEVETIRACETAM 1000MG PREMIX 100 ML IV ONE ×2 (16:30)
[2021-11-02 20:24] LABS: CLARITY URINE CLEAR (CLEAR); COLOR URINE YELLOW (YELLOW); KETONES URINE 1+ (NEGATIVE); LEUKOCYTE ESTERASE URINE NEGATIVE (NEGATIVE); NITRITE URINE NEGATIVE (NEGATIVE); OCCULT BLOOD URINE 2+ (NEGATIVE); PH URINE 5.5 (4.5-8.0); PROTEIN URINE 3+ (NEGATIVE); SPECIFIC GRAVITY URINE 1.019 (1.005-1.030); UROBILINOGEN URINE 0.2 E.U./dL (0.2-1.0)
[2021-11-02 20:42] LABS: *AMPHETAMINES SCREEN URINE NEGATIVE (NEGATIVE); *BARBITURATES SCREEN URINE NEGATIVE (NEGATIVE); *BENZODIAZEPINES SCREEN URINE NEGATIVE (NEGATIVE); *COCAINE SCREEN URINE NEGATIVE (NEGATIVE); CANNABINOID URINE SCREEN NEGATIVE (NEGATIVE); METHADONE URINE SCREEN NEGATIVE (NEGATIVE); OPIATES URINE SCREEN NEGATIVE (NEGATIVE); PHENCYCLIDINE URINE SCREEN NEGATIVE (NEGATIVE)
[2021-11-02 22:30] VITALS: BP 166/96
[2021-11-02] MEDS ORDERED: DEXT 5%/0.45% NACL 1000ML 1,000 ML IV SCH (22:45)
[2021-11-03] MEDS: LEVETIRACETAM 1000MG PREMIX 100 ML IV SCH ×3 (01:14→23:32)
[2021-11-03 04:00] VITALS: BP 155/99
[2021-11-03 06:29] LABS: BASOPHILS % 0.6 % (0.0-2.0); HEMATOCRIT. 36.6 % (42.0-52.0); HEMOGLOBIN. 12.3 g/dL (14.0-18.0); LYMPHOCYTES % 17.2 % (20.0-50.0); MEAN CORPUSCULAR HEMOGLOBIN 33.2 pg (28.0-32.0); MEAN CORPUSCULAR VOLUME 98.5 fL (80.0-94.0); MEAN PLATELET VOLUME 9.2 fl (7.4-10.4); MONOCYTES % 8.2 % (2.0-8.0); PLATELET 63 x1000/uL (130-400); RED BLOOD CELL COUNT 3.71 mill/uL (4.7-6.1); RED CELL DISTRIBUTION WIDTH 15.2 % (11.6-14.6)
[2021-11-03 06:48] LABS: CHLORIDE 100 mEq/L (98-107)
[2021-11-03 08:00] VITALS: BP 145/95
[2021-11-03] MEDS ORDERED: PANTOPRAZOLE 40MG DR TABLET PO SCH (09:00)
[2021-11-03] MEDS: EZETIMIBE 10MG TABLET PO SCH (10:04)
[2021-11-03] MEDS: FENOFIBRATE NANOCRYSTALLIZED 48MG TABLET PO SCH (10:05)
[2021-11-03] MEDS: METOPROLOL TARTRATE 50MG TABLET PO SCH ×2 (10:05→17:14)
[2021-11-03] MEDS ORDERED: POTASSIUM CHLORIDE 20MEQ TABLET SR PO NR (15:30)
[2021-11-03 16:00] VITALS: BP 146/92
[2021-11-03] MEDS: LORAZEPAM 2MG/ML CPJ IV PRN ×2 (16:50→21:43)
[2021-11-03] MEDS: CHLORDIAZEPOXIDE 25MG CAPSULE PO SCH ×2 (17:14→21:04)
[2021-11-03 20:00] VITALS: BP 134/96
[2021-11-04] VITALS: BP 135/98
[2021-11-04 04:00] VITALS: BP 133/95
[2021-11-04] MEDS: CHLORDIAZEPOXIDE 25MG CAPSULE PO SCH (05:12)
[2021-11-04 06:00] VITALS: BP 133/95
[2021-11-04] MEDS ORDERED: PANTOPRAZOLE 40MG DR TABLET PO SCH (07:20)
[2021-11-04 08:00] VITALS: BP 127/87
[2021-11-04] MEDS: FENOFIBRATE NANOCRYSTALLIZED 48MG TABLET PO SCH (08:47)
[2021-11-04] MEDS: EZETIMIBE 10MG TABLET PO SCH (08:47)
[2021-11-04] MEDS ORDERED: FOLIC ACID 1MG TABLET PO SCH (09:00)
[2021-11-04] MEDS ORDERED: MULTIVITAMINS,THER W-MINERALS TABLET PO SCH (09:00)
[2021-11-04] MEDS ORDERED: THIAMINE HCL 100MG TABLET PO SCH (09:00)
[2021-11-04] MEDS: METOPROLOL TARTRATE 50MG TABLET PO SCH (09:01)
== END 2021-11-04 10:00 | disposition left against medical advice (07) | DRG 53 ==
LOC: ER 12:27 → 6WST 18:07 → EDBEDREQ 18:14 → EDBEDREQTM 18:14 → ENRESERV 20:07
PROVIDERS: ADMIT Internal Medicine; ATTEND Internal Medicine
DX: G40.909 Epilepsy, unspecified, not intractable, without status epilepticus (principal); E78.5 Hyperlipidemia, unspecified; I10 Essential (primary) hypertension; F10.20 Alcohol dependence, uncomplicated; F17.200 Nicotine dependence, unspecified, uncomplicated; Z79.899 Other long term (current) drug therapy; Z91.19 Patient's noncompliance with other medical treatment and regimen; Z53.29 Procedure and treatment not carried out because of patient's decision for other reasons
CPT/HCPCS: 36415; 80053; 80305; 80320; 81003; 85025; 93005; 99285; J1953; J2060; J7030; G0480

== ENCOUNTER 2021-12-13 12:58 | Emergency (ER) | payer MEDICAID ==
[~2021-12-13] VITALS: Ht 167.6 cm; Wt 75.0 kg
[2021-12-13] MEDS ORDERED: MIDAZOLAM HCL 2 MG/2 ML VIAL IV ONE (13:15)
[2021-12-13] MEDS ORDERED: SODIUM CHLORIDE 0.9% 1,000 ML IV ONE (13:15)
[2021-12-13] MEDS ORDERED: LEVETIRACETAM 500MG PREMIX 100 ML IV ONE (13:15)
[2021-12-13 13:42] LABS: BASOPHILS % 2.3 % (0.0-2.0); EOSINOPHILS % 4.3 % (0.0-5.0); HEMATOCRIT. 37.2 % (42.0-52.0); HEMOGLOBIN. 12.8 g/dL (14.0-18.0); LYMPHOCYTES % 43.6 % (20.0-50.0); MEAN CORPUSCULAR HEMOGLOBIN 35.1 pg (28.0-32.0); MEAN CORPUSCULAR VOLUME 102.2 fL (80.0-94.0); MEAN PLATELET VOLUME 7.7 fl (7.4-10.4); MONOCYTES % 8.8 % (2.0-8.0); PLATELET 201 x1000/uL (130-400); RED BLOOD CELL COUNT 3.63 mill/uL (4.7-6.1); RED CELL DISTRIBUTION WIDTH 15.5 % (11.6-14.6)
[2021-12-13] MEDS ORDERED: MIDAZOLAM HCL 2 MG/2 ML VIAL IV NR (13:45)
[2021-12-13 13:50] LABS: CHLORIDE 107 mEq/L (98-107)
[2021-12-13 13:59] LABS: ETHANOL BLOOD 262 mg/dL; VALPROIC ACID <3.0 ug/mL ug/mL (50-100)
[2021-12-13 14:06] LABS: CARBAMAZEPINE < 0.5 ug/mL (4-12); PHENOBARBITAL < 2.1 ug/mL (15.0-40.0)
[2021-12-13] MEDS ORDERED: POTASSIUM CHLORIDE 20MEQ TABLET SR PO NR (14:30)
[2021-12-13] MEDS ORDERED: POTASSIUM CHLORIDE 20MEQ TABLET SR PO ONE (14:30)
[2021-12-13 20:05] VITALS: BP 146/88
== END 2021-12-13 22:05 | disposition home or self-care (01) ==
LOC: ER 12:58
DX: R41.82 Altered mental status, unspecified (principal); F10.129 Alcohol abuse with intoxication, unspecified; Y90.7 Blood alcohol level of 200-239 mg/100 ml; R56.9 Unspecified convulsions; I10 Essential (primary) hypertension
CPT/HCPCS: 36415; 70450; 71045; 80053; 80156; 80165; 80184; 80185; 80320; 84484; 85025; 93005; 96365; 96366; 96375; 99285; J1953; J2250; J7030; G0480

== ENCOUNTER 2021-12-29 13:45 | Inpatient (IN) | payer MEDICAID ==
[~2021-12-29] VITALS: Ht 175.3 cm; Wt 71.4 kg
[2021-12-29] MEDS ORDERED: LEVETIRACETAM 1000MG PREMIX 100 ML IV ONE (14:00)
[2021-12-29] MEDS ORDERED: LORAZEPAM 1MG TABLET PO ONE (14:00)
[2021-12-29 15:41] LABS: BASOPHILS % 1.8 % (0.0-2.0); EOSINOPHILS % 1.9 % (0.0-5.0); HEMATOCRIT. 37.2 % (42.0-52.0); HEMOGLOBIN. 12.6 g/dL (14.0-18.0); LYMPHOCYTES % 12.6 % (20.0-50.0); MEAN CORPUSCULAR HEMOGLOBIN 36.3 pg (28.0-32.0); MEAN CORPUSCULAR VOLUME 107.5 fL (80.0-94.0); MEAN PLATELET VOLUME 8.5 fl (7.4-10.4); MONOCYTES % 7.1 % (2.0-8.0); NEUTROPHILS % 76.6 % (40.0-76.0); PLATELET 133 x1000/uL (130-400); RED BLOOD CELL COUNT 3.46 mill/uL (4.7-6.1)
[2021-12-29 15:48] LABS: CHLORIDE 97 mEq/L (98-107)
[2021-12-29 15:55] LABS: ETHANOL BLOOD 53 mg/dL
[2021-12-29 16:05] LABS: CLARITY URINE CLEAR (CLEAR); COLOR URINE YELLOW (YELLOW); KETONES URINE TRACE (NEGATIVE); LEUKOCYTE ESTERASE URINE NEGATIVE (NEGATIVE); NITRITE URINE NEGATIVE (NEGATIVE); OCCULT BLOOD URINE NEGATIVE (NEGATIVE); PH URINE 5.5 (4.5-8.0); PROTEIN URINE 2+ (NEGATIVE); SPECIFIC GRAVITY URINE 1.019 (1.005-1.030)
[2021-12-29 16:13] LABS: *AMPHETAMINES SCREEN URINE NEGATIVE (NEGATIVE); *BARBITURATES SCREEN URINE NEGATIVE (NEGATIVE); *BENZODIAZEPINES SCREEN URINE NEGATIVE (NEGATIVE); *COCAINE SCREEN URINE NEGATIVE (NEGATIVE); CANNABINOID URINE SCREEN NEGATIVE (NEGATIVE); METHADONE URINE SCREEN NEGATIVE (NEGATIVE); OPIATES URINE SCREEN NEGATIVE (NEGATIVE); PHENCYCLIDINE URINE SCREEN NEGATIVE (NEGATIVE)
[2021-12-29 23:00] VITALS: BP 166/103
[2021-12-30] MEDS ORDERED: CHLORDIAZEPOXIDE 25MG CAPSULE PO NR (00:30)
[2021-12-30] MEDS ORDERED: THIAMINE HCL 100MG TABLET PO NR (00:30)
[2021-12-30] MEDS ORDERED: PANTOPRAZOLE 40MG DR TABLET PO NR (00:30)
[2021-12-30] MEDS ORDERED: CHLORDIAZEPOXIDE 25MG CAPSULE PO PRN (00:30)
[2021-12-30] MEDS ORDERED: AMLODIPINE 5MG TABLET PO NR (00:30)
[2021-12-30 02:00] VITALS: BP 154/60
[2021-12-30] MEDS ORDERED: PNEUMOCOCCAL 23-VAL P-SAC VAC 0.5 ML IM ONE (02:15)
[2021-12-30 04:00] VITALS: BP 136/92
[2021-12-30] MEDS: PANTOPRAZOLE 40MG DR TABLET PO SCH ×2 (07:28→08:23)
[2021-12-30 07:42] VITALS: BP 115/84
[2021-12-30] MEDS ORDERED: LEVETIRACETAM 750 MG in SODIUM CHLORIDE 0.9% 100 ML IV SCH (09:00)
[2021-12-30] MEDS ORDERED: METOPROLOL TARTRATE 50MG TABLET PO SCH (09:00)
[2021-12-30] MEDS ORDERED: AMLODIPINE 5MG TABLET PO SCH (09:00)
[2021-12-30] MEDS ORDERED: THIAMINE HCL 100MG TABLET PO SCH (09:00)
[2021-12-30 12:00] VITALS: BP 121/81
[2021-12-30] MEDS ORDERED: SODIUM CHLORIDE 0.9% 1,000 ML IV SCH (15:15)
[2021-12-30 15:56] VITALS: BP 130/82
== END 2021-12-30 16:25 | disposition left against medical advice (07) | DRG 53 ==
LOC: ER 13:59 → 8WST 18:55 → EDBEDREQ 18:56 → EDBEDREQTM 18:56 → ENRESERV 19:16 → 8WST 23:58
PROVIDERS: ADMIT Internal Medicine; ATTEND Internal Medicine
DX: G40.89 Other seizures (principal); E87.1 Hypo-osmolality and hyponatremia; E78.5 Hyperlipidemia, unspecified; F10.20 Alcohol dependence, uncomplicated; Z53.29 Procedure and treatment not carried out because of patient's decision for other reasons; I10 Essential (primary) hypertension; R74.01 Elevation of levels of liver transaminase levels; T42.6X6A Underdosing of other antiepileptic and sedative-hypnotic drugs, initial encounter; Y92.89 Other specified places as the place of occurrence of the external cause; Z91.14 Patient's other noncompliance with medication regimen; Z79.899 Other long term (current) drug therapy; Z87.820 Personal history of traumatic brain injury
CPT/HCPCS: 36415; 80053; 80305; 80320; 81003; 85025; 93005; 99285; J1953; J7030; J7050; G0480

== ENCOUNTER 2022-01-16 08:35 | Emergency (ER) | payer MEDICAID ==
[~2022-01-16] VITALS: Ht 177.8 cm; Wt 75.0 kg
[2022-01-16] MEDS ORDERED: SODIUM CHLORIDE 0.9% 1,000 ML IV ONE (09:00)
[2022-01-16 09:34] LABS: BASOPHILS % 1.5 % (0.0-2.0); HEMATOCRIT. 34.4 % (42.0-52.0); LYMPHOCYTES % 15.5 % (20.0-50.0); MEAN CORPUSCULAR HEMOGLOBIN 37.4 pg (28.0-32.0); MEAN PLATELET VOLUME 8.4 fl (7.4-10.4); MONOCYTES % 5.3 % (2.0-8.0); NEUTROPHILS % 74.7 % (40.0-76.0); PLATELET 162 x1000/uL (130-400); RED BLOOD CELL COUNT 3.21 mill/uL (4.7-6.1); RED CELL DISTRIBUTION WIDTH 15.6 % (11.6-14.6)
[2022-01-16 09:39] LABS: CHLORIDE 98 mEq/L (98-107)
[2022-01-16 09:43] LABS: INR 1.2; PROTHROMBIN TIME 12.8 sec (9.6-11.0)
[2022-01-16 09:50] LABS: ETHANOL BLOOD 15 mg/dL
[2022-01-16 12:07] VITALS: BP 113/75
[2022-01-16] MEDS ORDERED: LEVE1000 MT (19:33)
== END 2022-01-16 12:12 | disposition home or self-care (01) ==
LOC: ER 08:35
DX: R56.9 Unspecified convulsions (principal); F10.19 Alcohol abuse with unspecified alcohol-induced disorder; Y90.9 Presence of alcohol in blood, level not specified; I10 Essential (primary) hypertension
CPT/HCPCS: 36415; 70450; 71045; 80053; 80320; 84484; 85025; 85610; 93005; 96360; 96361; 99285; J7030; G0480

== ENCOUNTER 2022-01-16 12:30 | Emergency (ER) | payer MEDICAID ==
[~2022-01-16] VITALS: Ht 177.8 cm; Wt 80.0 kg
[2022-01-16 12:38] VITALS: BP 152/101
[2022-01-16] MEDS ORDERED: SODIUM CHLORIDE 0.9% 1,000 ML IV ONE (13:00)
[2022-01-16] MEDS ORDERED: LEVETIRACETAM 1000MG PREMIX 100 ML IV ONE (13:00)
[2022-01-16 13:47] LABS: BASOPHILS % 0.9 % (0.0-2.0); EOSINOPHILS % 1.7 % (0.0-5.0); HEMOGLOBIN. 11.5 g/dL (14.0-18.0); LYMPHOCYTES % 13.4 % (20.0-50.0); MEAN CORPUSCULAR VOLUME 105.8 fL (80.0-94.0); MEAN PLATELET VOLUME 8.8 fl (7.4-10.4); MONOCYTES % 5.7 % (2.0-8.0); NEUTROPHILS % 78.3 % (40.0-76.0); PLATELET 139 x1000/uL (130-400); RED BLOOD CELL COUNT 3.12 mill/uL (4.7-6.1); RED CELL DISTRIBUTION WIDTH 15.5 % (11.6-14.6)
[2022-01-16 13:52] LABS: CHLORIDE 101 mEq/L (98-107)
[2022-01-16 13:59] LABS: ETHANOL BLOOD < 10 mg/dL
[2022-01-16] MEDS ORDERED: POTASSIUM CHLORIDE 20MEQ TABLET SR PO NR (15:00)
[2022-01-16] MEDS ORDERED: SODIUM CHLORIDE 0.9% 1,000 ML IV NR (15:45)
[2022-01-16 17:58] LABS: CHLORIDE 105 mEq/L (98-107)
[2022-01-16] MEDS ORDERED: POTASSIUM CHLORIDE 20MEQ TABLET SR PO SCH (18:15)
[2022-01-16] MEDS ORDERED: LEVE1000 MT (19:33)
== END 2022-01-16 20:00 | disposition home or self-care (01) ==
LOC: ER 12:40
DX: G40.909 Epilepsy, unspecified, not intractable, without status epilepticus (principal); I10 Essential (primary) hypertension
CPT/HCPCS: 36415; 70450; 80048; 80053; 80320; 83605; 85025; 96365; 99291; J1953; J7030; Z7610; G0480

== ENCOUNTER 2022-01-25 08:33 | Emergency (ER) | payer MEDICAID ==
[~2022-01-25] VITALS: Ht 175.3 cm; Wt 77.0 kg
[2022-01-25 09:10] LABS: BASOPHILS % 3.2 % (0.0-2.0); EOSINOPHILS % 6.1 % (0.0-5.0); HEMATOCRIT. 34.5 % (42.0-52.0); HEMOGLOBIN. 11.6 g/dL (14.0-18.0); LYMPHOCYTES % 23.8 % (20.0-50.0); MEAN CORPUSCULAR VOLUME 110.2 fL (80.0-94.0); MEAN PLATELET VOLUME 8.1 fl (7.4-10.4); MONOCYTES % 10.8 % (2.0-8.0); NEUTROPHILS % 56.1 % (40.0-76.0); PLATELET 206 x1000/uL (130-400); RED BLOOD CELL COUNT 3.13 mill/uL (4.7-6.1); RED CELL DISTRIBUTION WIDTH 15.9 % (11.6-14.6)
[2022-01-25 09:15] LABS: CHLORIDE 105 mEq/L (98-107)
[2022-01-25] MEDS ORDERED: LEVETIRACETAM 1000MG PREMIX 100 ML IV ONE (09:15)
[2022-01-25 10:23] LABS: PLATELET ESTIMATE NORMAL
[2022-01-25 13:03] VITALS: BP 151/107
== END 2022-01-25 13:06 | disposition home or self-care (01) ==
LOC: ER 08:33
DX: G40.909 Epilepsy, unspecified, not intractable, without status epilepticus (principal); F11.129 Opioid abuse with intoxication, unspecified; I10 Essential (primary) hypertension; Z79.899 Other long term (current) drug therapy
CPT/HCPCS: 36415; 80053; 85025; 96365; 99285; J1953; 99284

== ENCOUNTER 2022-02-06 12:10 | Inpatient (IN) | payer MEDICAID ==
[~2022-02-06] VITALS: Ht 175.3 cm; Wt 68.0 kg
[2022-02-06] MEDS ORDERED: BACITRACIN ZINC OINT UDPKT TOP ONE (12:45)
[2022-02-06] MEDS ORDERED: TETANUS, DIPHTHERIA, PERTUSSIS VAC/PF 0.5ML (>10YR OLD) IM ONE (12:45)
[2022-02-06] MEDS ORDERED: LEVETIRACETAM 1000MG PREMIX 100 ML IV ONE (12:45)
[2022-02-06] MEDS ORDERED: LORAZEPAM 2MG/ML CPJ ONE (13:04)
[2022-02-06] MEDS ORDERED: LORAZEPAM 2MG/ML CPJ IV ONE (13:15)
[2022-02-06 14:00] LABS: BASOPHILS % 1.5 % (0.0-2.0); EOSINOPHILS % 10.5 % (0.0-5.0); HEMATOCRIT. 38.9 % (42.0-52.0); HEMOGLOBIN. 13.2 g/dL (14.0-18.0); LYMPHOCYTES % 21.4 % (20.0-50.0); MEAN CORPUSCULAR HEMOGLOBIN 36.8 pg (28.0-32.0); MEAN CORPUSCULAR VOLUME 108.6 fL (80.0-94.0); MONOCYTES % 7.7 % (2.0-8.0); NEUTROPHILS % 58.9 % (40.0-76.0); PLATELET 193 x1000/uL (130-400); RED BLOOD CELL COUNT 3.58 mill/uL (4.7-6.1); RED CELL DISTRIBUTION WIDTH 15.7 % (11.6-14.6)
[2022-02-06 14:20] LABS: CHLORIDE 94 mEq/L (98-107)
[2022-02-06 14:28] LABS: ETHANOL BLOOD 140 mg/dL
[2022-02-06] MEDS ORDERED: LIDOCAINE HCL/PF 1% 10 MG/ML 5ML VIAL INFIL ONE (16:15)
[2022-02-06 19:45] LABS: CLARITY URINE CLEAR (CLEAR); COLOR URINE YELLOW (YELLOW); KETONES URINE NEGATIVE (NEGATIVE); LEUKOCYTE ESTERASE URINE NEGATIVE (NEGATIVE); NITRITE URINE NEGATIVE (NEGATIVE); OCCULT BLOOD URINE NEGATIVE (NEGATIVE); PH URINE 6.5 (4.5-8.0); PROTEIN URINE NEGATIVE (NEGATIVE)
[2022-02-06 20:55] LABS: *AMPHETAMINES SCREEN URINE NEGATIVE (NEGATIVE); *BARBITURATES SCREEN URINE NEGATIVE (NEGATIVE); *BENZODIAZEPINES SCREEN URINE NEGATIVE (NEGATIVE); *COCAINE SCREEN URINE NEGATIVE (NEGATIVE); CANNABINOID URINE SCREEN NEGATIVE (NEGATIVE); METHADONE URINE SCREEN NEGATIVE (NEGATIVE); OPIATES URINE SCREEN NEGATIVE (NEGATIVE); PHENCYCLIDINE URINE SCREEN NEGATIVE (NEGATIVE)
[2022-02-06 22:00] VITALS: BP 146/89
[2022-02-06 22:30] VITALS: BP 146/89
[2022-02-06] MEDS ORDERED: LORAZEPAM 2MG/ML CPJ IV PRN (23:30)
[2022-02-07] VITALS: BP 127/82
[2022-02-07] MEDS: THIAMINE HCL 100MG TABLET PO SCH ×2 (00:22→09:42)
[2022-02-07] MEDS ORDERED: AMLO5TAB88 PO (02:34)
[2022-02-07] MEDS ORDERED: LEVE500T19 PO (02:34)
[2022-02-07 04:00] VITALS: BP 130/78
[2022-02-07 06:51] LABS: BASOPHILS % 0.6 % (0.0-2.0); EOSINOPHILS % 7.7 % (0.0-5.0); HEMATOCRIT. 35.7 % (42.0-52.0); HEMOGLOBIN. 12.3 g/dL (14.0-18.0); LYMPHOCYTES % 14.2 % (20.0-50.0); MEAN CORPUSCULAR HEMOGLOBIN 36.8 pg (28.0-32.0); MEAN CORPUSCULAR VOLUME 106.7 fL (80.0-94.0); MEAN PLATELET VOLUME 9.3 fl (7.4-10.4); MONOCYTES % 5.3 % (2.0-8.0); NEUTROPHILS % 72.2 % (40.0-76.0); PLATELET 136 x1000/uL (130-400); RED BLOOD CELL COUNT 3.35 mill/uL (4.7-6.1); RED CELL DISTRIBUTION WIDTH 15.2 % (11.6-14.6)
[2022-02-07 07:23] LABS: CHLORIDE 96 mEq/L (98-107)
[2022-02-07 08:00] VITALS: BP 140/96
[2022-02-07] MEDS ORDERED: PANTOPRAZOLE 40MG DR TABLET PO SCH (09:00)
[2022-02-07] MEDS ORDERED: LEVETIRACETAM 1000MG PREMIX 100 ML IV SCH (09:00)
[2022-02-07] MEDS ORDERED: AMLODIPINE 5MG TABLET PO SCH (09:00)
[2022-02-07] MEDS: METOPROLOL TARTRATE 25MG TABLET PO SCH ×2 (09:42→17:19)
[2022-02-07] MEDS: SODIUM CHL 0.9% + KCL 20MEQ/L 1,000 ML IV SCH ×2 (09:42→19:00)
[2022-02-07 12:00] VITALS: BP 137/98
[2022-02-07 16:00] VITALS: BP 128/94
[2022-02-07] MEDS ORDERED: POTASSIUM CHLORIDE 20MEQ TABLET SR PO NR (20:45)
[2022-02-07] MEDS ORDERED: LORAZEPAM 1MG TABLET PO PRN (20:45)
[2022-02-07] MEDS ORDERED: LEVETIRACETAM 500MG TABLET PO SCH (21:00)
== END 2022-02-07 20:50 | disposition left against medical advice (07) | DRG 53 ==
LOC: ER 13:21 → 6WST 17:00 → EDBEDREQTM 17:05 → EDBEDREQ 17:05 → ENRESERV 20:45 → 6WST 02-07 18:00
PROVIDERS: ADMIT Internal Medicine; ATTEND Internal Medicine
PROC: 0HQ1XZZ Repair Face Skin, External Approach (ICD-10-PCS; principal; 2022-02-06)
DX: G40.909 Epilepsy, unspecified, not intractable, without status epilepticus (principal); E87.1 Hypo-osmolality and hyponatremia; K70.10 Alcoholic hepatitis without ascites; S01.111A Laceration without foreign body of right eyelid and periocular area, initial encounter; F10.229 Alcohol dependence with intoxication, unspecified; I10 Essential (primary) hypertension; D53.9 Nutritional anemia, unspecified; Y90.6 Blood alcohol level of 120-199 mg/100 ml; Z53.29 Procedure and treatment not carried out because of patient's decision for other reasons; X58.XXXA Exposure to other specified factors, initial encounter; Y93.89 Activity, other specified; Y92.89 Other specified places as the place of occurrence of the external cause; Y99.8 Other external cause status; Z82.49 Family history of ischemic heart disease and other diseases of the circulatory system
CPT/HCPCS: 36415; 80048; 80053; 80076; 80305; 80320; 81003; 85025; 90715; 99291; C1893; J1953; J2060; J3480; J3490; G0480

== ENCOUNTER 2022-08-18 00:23 | Emergency (ER) | payer MEDICAID ==
[~2022-08-18] VITALS: Ht 167.6 cm; Wt 78.0 kg
[~2022-08-18 00:23] MED LIST changes: +AMLO5TAB88 PO; +LEVE500T19 PO
[2022-08-18 00:27] VITALS: BP 0/96
== END 2022-08-18 01:51 | disposition home or self-care (01) ==
LOC: ER 00:27
DX: F10.229 Alcohol dependence with intoxication, unspecified (principal); Y90.0 Blood alcohol level of less than 20 mg/100 ml; I10 Essential (primary) hypertension; Z79.899 Other long term (current) drug therapy
CPT/HCPCS: 99283